=== PATIENT | male | born 1960 | race Caucasian/White ===

== ENCOUNTER 2017-04-16 11:37 | Emergency (ER) | payer BC | END 2017-04-16 13:47 | disposition home or self-care (01) | LOC: ER 11:37 | DX: S68.622A Partial traumatic transphalangeal amputation of right middle finger, initial encounter (principal); Z23 Encounter for immunization; Z79.899 Other long term (current) drug therapy; W23.0XXA Caught, crushed, jammed, or pinched between moving objects, initial encounter; Y92.009 Unspecified place in unspecified non-institutional (private) residence as the place of occurrence of the external cause | CPT/HCPCS: 90471 ==